=== PATIENT | female | born 1985 | race Caucasian/White ===

== ENCOUNTER 2018-05-17 22:20 | Emergency (ER) | payer BC ==
[2018-05-18] MEDS ORDERED: DEXAMETHASONE SOD PHOS INJ 10 MG/1 ML VIAL IM ONE (00:15)
--- NOTE | 2018-05-18 00:17 | ER Document Report ---
ED General - General Chief Complaint: Bee Sting Stated Complaint: INSECT STING Time Seen by Provider: 05/18/18 00:09 Notes: Patient's is a pleasant 32-year-old female who presents with complaint of being stung multiple times in her right arm and hand as well as also being started on the left arm. No difficulty breathing or swallowing. This happened earlier today. She notes that throughout the course the day she starts having some swelling to her right hand and therefore is come to the ER. She has been taking Benadryl. She did see the insects and says they were some type of Bee. She has no other complaints at this time. As a child she is to have some anaphylactic reaction to bee stings but since middle school she only gets the swelling and itching. TRAVEL OUTSIDE OF THE [place] IN LAST 30 DAYS: No - Related Data Allergies/Adverse Reactions: No Known Allergies Allergy (Unverified 01/14/12 18:44) Past Medical History - Social History Smoking Status: Current Every Day Smoker Frequency of alcohol use: None Drug Abuse: None Family History: Reviewed & Not Pertinent GI Medical History: Reports: Hx Gastroesophageal Reflux Disease Past Surgical History: Reports: Hx Cholecystectomy, Hx Tonsillectomy - Immunizations Hx Diphtheria, Pertussis, Tetanus Vaccination: Yes Review of Systems - Review of Systems Notes: My Normal Review Basic REVIEW OF SYSTEMS: CONSTITUTIONAL : Denies fever, chills, or sweats. Denies recent illness. EENT: Denies eye, ear, throat, or mouth pain or symptoms. Denies nasal or sinus congestion. RESPIRATORY: Denies cough, cold, or chest congestion. Denies shortness of breath, difficulty breathing, or wheezing. GASTROINTESTINAL: Denies abdominal pain. Denies nausea, vomiting, or diarrhea. MUSCULOSKELETAL: Hand swelling NEUROLOGICAL: Denies altered mental status or loss of consciousness. ALL OTHER SYSTEMS REVIEWED AND NEGATIVE. Physical Exam - Vital signs Vitals: Temp Pulse Resp BP Pulse Ox 98.0 F 88 18 151/102 H 97 05/17/18 23:14 05/17/18 23:14 05/17/18 23:14 05/17/18 23:14 05/17/18 23:14 - Notes Notes: General Appearance: Well nourished, alert, cooperative, no acute distress, no obvious discomfort. Well Appearing. Vitals: reviewed, See vital signs table. Head: no swelling or tenderness to the head Eyes: PERRL, EOMI, Conjuctiva clear Mouth: No decreasd moisture Throat: No tonsillar inflammation, No airway obstruction, No lymphadenopathy. No glossal or pharyngeal swelling. Neck: Supple, no neck tenderness, No neck swelling Lungs: No wheezing, No rales, No rhonci, No accessory muscle use, good air exchange bilaterally. Heart: Normal rate, Regular rythm, No murmur, no rub Extremities: strength 5/5 in all extremities, good pulses in all extremities, she has multiple bee sting areas over the right arm and hand. She has one area over the left inner upper arm as well. There is some localized swelling to the right bee stings of the left upper inner arm and the right upper inner arm. She does have swelling into the right hand which appears to be gravity dependent swelling as well as also from a few bee stings on her hand as well. There is no significant erythema or signs of infection. There are no open wounds. Skin: warm, dry, appropriate color, no rash Neuro: speech clear, oriented x 3, normal affect, responds appropriately to questions. Course - Re-evaluation Re-evalutation: 05/18/18 00:23 Patient has multiple bee stings. She does have some swelling that is worse in in the right hand due to gravity dependent swelling. Encouraged to keep her arm elevated on pillows. I will give her a dose Decadron. I encourage her take Benadryl as needed for itching. I did inform her to prefer to prescribe her an EpiPen in case she ever does have an anaphylactic reaction. 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 I therefore did not write the prescription for the EpiPen as the patient said she would not fill it. I strongly encouraged her return to ER immediately if she has any tongue swelling, throat swelling, itching, difficulty breathing, or worsening swelling. Patient agrees with plan will be discharged home. Dictation of this chart was performed using voice recognition software; therefore, there may be some unintended grammatical errors. - Vital Signs Vital signs: Temp Pulse Resp BP Pulse Ox 98.0 F 88 18 151/102 H 97 05/17/18 23:14 05/17/18 23:14 05/17/18 23:14 05/17/18 23:14 05/17/18 23:14 Discharge - Discharge Clinical Impression: Bee sting reaction Qualifiers: Encounter type: initial encounter Injury intent: accidental or unintentional Qualified Code(s): T63.441A - Toxic effect of venom of bees, accidental ( unintentional), initial encounter Condition: Good Disposition: HOME, SELF-CARE Additional Instructions: Please keep your arm elevated on pillows when you sleep at night. Please take Benadryl 25-50mg every 6 hours for itching. Please return to the ER immediately if you have difficulty breathing, wheezing, tongue swelling, itching or soreness in her throat, or she feels unwell. Referrals: VENTURA ROJO NP [Primary Care Provider] - Follow up in 3-5 days
[2018-05-18 01:37] VITALS: BP 142/88
== END 2018-05-18 01:39 | disposition home or self-care (01) ==
LOC: ER 22:20
DX: T63.441A Toxic effect of venom of bees, accidental (unintentional), initial encounter (principal); M79.89 Other specified soft tissue disorders; F17.200 Nicotine dependence, unspecified, uncomplicated; Z87.892 Personal history of anaphylaxis
CPT/HCPCS: 99282; 96372; J1100